=== PATIENT | female | born 1940 | race Caucasian/White ===

== ENCOUNTER 2017-01-19 15:38 | Inpatient (IN) | payer MEDICARE ==
[2017-01-19] MEDS ORDERED: Promethazine HCl 25 MG/ML VIAL ONE ×2 (16:35→19:22)
[2017-01-19 16:42] LABS: #Basophils 0.1 thou/uL (0.0-0.2); #Lymphocytes 1.5 thou/uL (1.20-3.40); #Monocytes 0.4 thou/uL (0.11-0.59); #Neutrophils 7.8 thou/uL (1.40-6.50); %Eosinophils 0.3 % (0.0-10.0); %Lymphocytes 15.7 % (21.0-51.0); %Monocytes 4.2 % (0.0-10.0); Hematocrit 45.4 % (36.0-47.0); Mean Platelet Volume 6.6 fL (7.4-10.4); Red Blood Cell (RBC) Count 4.67 mill/uL (4.20-5.40); White Blood Cell (WBC) Count 9.8 thou/uL (4.8-10.8)
[2017-01-19 17:00] LABS: ALT (SGPT) 12 U/L (8-55); AST (SGOT) 18 U/L (5-34); Alkaline Phosphatase 66 U/L (40-150); Anion Gap 19 mmol/L (10-20); BUN (Urea Nitrogen) 22 mg/dL (9.8-20.1); Bilirubin, Total 0.5 mg/dL (0.2-1.2); Calc. Creatinine Clearance 0 mL/min (70-130); Calcium 9.6 mg/dL (7.8-10.44); Carbon Dioxide 22 mmol/L (23-31); Chloride 100 mmol/L (98-107); Estimated GFR-MDRD 77; Globulin 3.4 g/dL (2.4-3.5); Lipase 10 U/L (8-78)
[2017-01-19 17:42] LABS: Bilirubin Negative (Negative); Blood, Urine Negative (Negative); Glucose, Urine (Dipstick) 100 mg/dL (Negative); Ketone, Urine Trace mg/dL (Negative); Nitrite Negative (Negative); Protein, Urine (Dipstick) 30 mg/dL (Neg-Trace); Urobilinogen 0.2 mg/dL (0.2-1.0)
[2017-01-19 17:44] LABS: Bacteria/HPF None Seen HPF (None Seen); Hyaline Casts/LPF 0-3 HYALINE CAST LPF (0-3 Hyaline); Squamous Epithelial None Seen HPF (0-3); WBC/HPF None Seen HPF (0-3)
--- NOTE | 2017-01-19 19:02 | CT ---
NONCONTRAST HEAD CT: Date: 01/19/17 HISTORY: Dizziness. COMPARISON: None. TECHNIQUE: Noncontrast head CT is performed from skull base to skull vertex. FINDINGS: No parenchymal hemorrhage. No extra-axial hematoma. No midline shift. Basilar cisterns are patent. Br ain volume, age-appropriate. Note, there is slight asymmetric atrophy of the frontal lobes. Cortical stacy-white matter differentiation is preserved. Ventricles and sulci are patent and symmetric. Calvar ium is intact. Prominent extra-axial space along the left and right frontal convexity secondary to asymmetric atroph y of the frontal lobe. Remote lacunar infarcts in both caudate nuclei. Indeterminate infarcts in the anterior limb of left i nternal capsule. Calvarium is intact. Adequate aeration of the sinuses and mastoid air cells. IMPRESSION: 1. Indeterminate lacunar infarcts in the anterior limb of left internal capsule. 2. Remote lacunar infarcts in both caudate nuclei. 3. Asymmetric atrophy of the left and right frontal lobe. There is associated prominent extra-axial CSF space secondary to atrophy. Correlate for Pick's disease. 4. Further evaluation with brain MRI may be beneficial. POS: PPP
[2017-01-19] MEDS ORDERED: Lorazepam 2 MG/ML VIAL ONE (19:22)
[2017-01-19] MEDS ORDERED: niCARdipine 20MG In NaCl 20 MG/200 ML BAG ONE (19:22)
--- NOTE | 2017-01-19 21:35 | PDOC.EVN ---
Event Note - Event Note Event Note: [id number] H&P Dictated 1. headache 2. HTN uregency 3. H/O HPL 4. R/O CVA PLAN: SEE ORDERS
[2017-01-20] MEDS: Ondansetron HCl/PF 4 MG/2 ML Vial IVP PRN ×4 (00:43→15:00)
[2017-01-20] MEDS: Sodium Chloride 0.9% 1,000 ML IV SCH ×2 (00:44→17:30)
[2017-01-20 00:45] VITALS: BMI 25.5
[2017-01-20 04:28] LABS: Anion Gap 12 mmol/L (10-20); BUN (Urea Nitrogen) 16 mg/dL (9.8-20.1); Calc. Creatinine Clearance 73 mL/min (70-130); Calcium 8.3 mg/dL (7.8-10.44); Carbon Dioxide 26 mmol/L (23-31); Chloride 102 mmol/L (98-107); Cholesterol 205 mg/dl (< 200 Desired); Estimated GFR-MDRD 85; LDL Cholesterol, Calculated 92 mg/dL
[2017-01-20 04:45] LABS: #Monocytes 0.4 thou/uL (0.11-0.59); #Neutrophils 5.9 thou/uL (1.40-6.50); %Basophils 0.3 % (0.0-1.0); %Eosinophils 0.3 % (0.0-10.0); %Lymphocytes 13.3 % (21.0-51.0); %Monocytes 5.4 % (0.0-10.0); Hematocrit 40.7 % (36.0-47.0); White Blood Cell (WBC) Count 7.3 thou/uL (4.8-10.8)
--- NOTE | 2017-01-20 06:17 | HP ---
DATE OF ADMISSION: 01/19/2017 CHIEF COMPLAINT: Headache, dizziness. HISTORY OF PRESENT ILLNESS: Patient is a 76-year-old female with past medical history of hypertensio n, hyperlipidemia, and was brought to the ER because of headache and dizziness. Patient was doing fi ne and all of a sudden around noon, the patient when she tried to get up from the couch, she started feeling dizzy as if she is going to fall, unsteady gait associated with some nausea and vomiting. So patient was brought to the ER. Upon ER arrival, patient complains of headache. Headache is dull ki nd and mild in intensity and hurting all over the head . Denies any fever, denies any chills. Patient was given Ativan in the ER because of dizziness. Denies any chest pain, denies any palpation s. Denies any cough, denies sputum production. PAST MEDICAL HISTORY: Denies smoking, occasional alcohol, denies any drugs. FAMILY HISTORY: Positive for heart problems. MEDICATIONS: List Reviewed. ALLERGIES: Reviewed. SOCIAL HISTORY: Denies smoking or drugs. Occasional alcohol use. PAST SURGICAL HISTORY: Cholecystectomy and hysterectomy. REVIEW OF SYSTEMS: Constitutional: Denies any fever, denies any chills. Eyes: Denies any vision p roblems. Ears: Denies any hearing loss. Neck: Denies any neck pain. Cardiovascular System: [place] es any chest pain. Respiratory System: Denies any cough, denies sputum production. Gastrointestina l: Positive for nausea, vomiting. Cranial nerve system: Positive for dizziness. Positive for head aches. Psychiatric: Denies anxiety. Integument: Denies any rash. Musculoskeletal: Denies any judd int deformities. All other review of systems are reviewed and are negative. PHYSICAL EXAMINATION: CONSTITUTIONAL/VITAL SIGNS: At the time of H&P performed, blood pressure is 162/68, pulse ox 94%, he art rate 60. GENERAL: The patient appears comfortable. HEENT: Pupils are equal, round, and reactive. Anterior nares patent. Nose normal. Ears normal. T eeth intact. Tongue is moist. NECK: Supple, no JVD. CARDIOVASCULAR: S1, S2 present. Regular rate and rhythm. No murmurs, no rubs, no gallops. RESPIRATORY: No wheezing, no rhonchi. Breath sounds bilaterally. GASTROINTESTINAL: Abdomen is soft, nontender, no guarding, no organomegaly, no masses felt. MUSCULOSKELETAL: No edema. INTEGUMENT: No rashes seen. PSYCHIATRIC: Mood appropriate at this time. LABORATORY DATA: At the time of H&P performed white count 9.8, hemoglobin 14.5, platelet count is 25 7,000. BMP showed sodium 137, potassium 3.5, chloride 100, CO2 is 22, BUN 22, creatinine 0.73. AST 18, ALT 12. IMAGING: CT brain, positive for indeterminate lacunar infarcts in the anterior limb of left internal capsule, remote lacunar infarcts in both caudate nuclei, asymmetric atrophy of the left and right fr ontal lobe. ASSESSMENT AND PLAN: Patient is a 76-year-old female: 1. Rule out stroke. Plan to consult Neurology to evaluate the patient. Plan to check MRI brain. P lev to do carotid ultrasound. Plan to check to do echo. We will follow the patient closely. 2. Hypertension urgency. Plan to monitor blood pressure closely. Plan to start on Cardene drip. W e will to titrate her blood pressure to around 160s and we will monitor blood pressure. We will foll ow the patient closely. 3. Nausea and vomiting, p.r.n. antiemetics. 4. Hyperlipidemia. Continue statin. Case was discussed in detail with the patient and patient's cousin also at the bedside.
--- NOTE | 2017-01-20 08:00 | CON ---
DATE OF CONSULTATION: 01/20/2017 REASON FOR CONSULTATION: ICU management of hypertensive emergency. HISTORY OF PRESENT ILLNESS: The patient is a 76-year-old female who came to the emergency room last night with some headache and dizziness, but mainly leg pain. She had a CT of the brain that showed s ome indeterminate age lacunar infarcts. The patient says she does have a history of a stroke affecti ng 1 of her eyes in the past. She currently is not having any headache, but continued to have some l eg pain. She was placed on a Cardene drip last night which is currently running at 1 mg per hour. PAST MEDICAL HISTORY: 1. Hypertension. 2. Hyperlipidemia. 3. Leg cramps. 4. Rheumatoid arthritis. PAST SURGICAL HISTORY: 1. Cholecystectomy. 2. Hysterectomy. MEDICATIONS: Excedrin Migraine 1 tablet daily as needed, Butrans transdermal patch 10 mcg per hour a pplied weekly, Celebrex 100 mg b.i.d., Bentyl 20 mg 4 times daily, [place] 10/325 one every 6 hours as needed for pain, lisinopril 10 mg twice daily, melatonin 1 mg nightly, One a Day Women's vitamin once daily, Crestor 20 mg daily, loratadine 10 mg daily, Imitrex 100 mg as needed. SOCIAL HISTORY: Does not smoke. Very occasionally consumes alcohol, does not use illicit substances . REVIEW OF SYSTEMS: Denies fever, chills, nausea, vomiting, chest pain, hematemesis, melena, hematoch ezia, hematuria, or dysuria. PHYSICAL EXAMINATION: VITAL SIGNS: Temperature 98.4, pulse 65, blood pressure 156/57. Intake 296, output 350. GENERAL: She is awake and alert, in no distress. NEUROLOGIC: She has no focal weakness. Sensation is fully intact throughout. Motor strength is 5/5 throughout. Cranial nerves II-XII are intact. HEENT: Unremarkable. NECK: No JVD, no bruits. LUNGS: Clear to auscultation anteriorly. CARDIOVASCULAR: S1 and S2 regular with a 2/6 systolic ejection murmur. ABDOMEN: Soft, nontender, no hepatosplenomegaly. EXTREMITIES: No clubbing, cyanosis or edema. SKIN: No obvious lesions. LABORATORY DATA: Sodium 136, potassium 3.7, chloride 102, CO2 26, BUN 16, creatinine 0.6, glucose 10 6. White blood cell count 7.3, hematocrit 40.7, platelet count 239. ASSESSMENT: 1. Headache with some leg pain. No indication on exam that she has had a stroke. CT shows some ind eterminate age old lacunar infarcts. 2. Hypertensive urgency - this is not an emergent situation. PLAN: She can be transferred to the floor and restarted on her antihypertensives. Her Cardene will be stopped. Further workup for stroke will be done on the stroke unit.
[2017-01-20] MEDS: Aspirin 81 mg Enteric Coated Tablet PO SCH (08:33)
[2017-01-20] MEDS: Lisinopril 10 MG TAB PO SCH ×2 (08:33→21:25)
[2017-01-20] MEDS: Heparin 5,000 UNITS/ML VIAL SC SCH ×3 (08:33→21:25)
[2017-01-20] MEDS: CeleCOXIB 100 MG CAP PO SCH ×2 (09:05→21:24)
[2017-01-20] MEDS ORDERED: SUMAtriptan Succinate 50 MG TAB PO PRN (09:30)
[2017-01-20] MEDS ORDERED: Famotidine 20 MG TAB PO SCH (11:45)
[2017-01-20] MEDS: Dicyclomine 20 MG TAB PO SCH ×3 (14:59→21:24)
--- NOTE | 2017-01-20 15:21 | PDOC.PN ---
- Subjective Encounter Start Date: 01/20/17 Encounter Start Time: 15:19 Subjective: feels weak,nauseous,tired.no headache. -: no paresthesias,muscle weakness - Objective MAR Reviewed: Yes Vital Signs & Weight: Vital Signs (12 hours) Temp Pulse Pulse Pulse Pulse Pulse Resp 01/20/17 14:15 60 81 78 57 L 01/20/17 08:33 01/20/17 08:00 97.9 F 01/20/17 07:58 97.9 F 55 L 17 01/20/17 04:00 98.4 F BP BP BP BP BP Pulse Ox 01/20/17 14:15 172/76 H 149/96 H 158/85 H 184/82 H 01/20/17 08:33 156/61 H 01/20/17 08:00 01/20/17 07:58 98 01/20/17 04:00 Most Recent Monitor Data Heart Rate from ECG 56 NIBP 166/63 NIBP BP-Mean 85 Respiration from ECG 15 SpO2 100 I&O: 01/19/17 01/20/17 01/21/17 06:59 06:59 06:59 Intake Total 296 250 Output Total 350 0 Balance -54 250 Result Diagrams: 01/20/17 03:27 01/20/17 03:27 Additional Labs: Laboratory Tests 01/20/17 03:27 Cholesterol 205 H Phys Exam - Physical Examination Constitutional: NAD HEENT: PERRLA, moist MMs, sclera anicteric, oral pharynx no lesions Neck: no nodes, no JVD, supple, full ROM Respiratory: no wheezing, no rales, no rhonchi, clear to auscultation bilateral Cardiovascular: RRR, no significant murmur Gastrointestinal: soft, non-tender, no distention, positive bowel sounds Musculoskeletal: no edema, pulses present Neurological: non-focal, normal sensation, moves all 4 limbs Psychiatric: normal affect, A&O x 3 Skin: no rash Dx/Plan (1) HLD (hyperlipidemia) Code(s): E78.5 - HYPERLIPIDEMIA, UNSPECIFIED Status: Acute (2) HTN (hypertension) Code(s): I10 - ESSENTIAL (PRIMARY) HYPERTENSION Status: Acute (3) Hypertensive urgency Code(s): I16.0 - HYPERTENSIVE URGENCY Status: Resolved - Plan plan discussed w/ family, DVT proph w/SCDs BP WNL.out of CCU.cont home meds.adjust as needed.may add diuretic -: CT shows old lacunar infarct.MRI ,echo,neurology consult pending -: cont ASA. -: check EKG for some atrial tachycardia on monitor.hemodynamically stable -: MRI machine broken.will try tomorrow * . Review of Systems - Review of Systems Constitutional: Weakness, Malaise. negative: Fever, Chills, Sweats, Other Respiratory: negative: Cough, Dry, Shortness of Breath, Hemoptysis, SOB with Excertion, Pleuritic Pain, Sputum, Wheezing Cardiovascular: negative: Chest Pain, Palpitations, Orthopnea, Paroxysmal Noc. Dyspnea, Edema, Light Headedness, Other Gastrointestinal: Nausea. negative: Vomiting, Abdominal Pain, Diarrhea, Constipation, Melena, Hematochezia, Other Genitourinary: negative: Dysuria, Frequency, Incontinence, Hematuria, Retention , Other Musculoskeletal: negative: Neck Pain, Shoulder Pain, Arm Pain, Back Pain, Hand Pain, Leg Pain, Foot Pain, Other Neurological: negative: Weakness, Numbness, Incoordination, Change in Speech, Confusion, Seizures, Other - Medications/Allergies Allergies/Adverse Reactions: Allergies Allergy/AdvReac Type Severity Reaction Status Date / Time Penicillins Allergy Verified 03/15/16 20:23 Medications: Current Medications Acetaminophen (Tylenol) 650 mg PO Q4H PRN PRN Reason: Headache/Fever or Pain Aspirin (Ecotrin) 81 mg PO DAILY [facility] Last Admin: 01/20/17 08:33 Dose: 81 mg Celecoxib (Celebrex) 100 mg PO BID [facility] Last Admin: 01/20/17 09:05 Dose: 100 mg Dicyclomine HCl (Bentyl) 20 mg PO QID [facility] Last Admin: 01/20/17 14:59 Dose: 20 mg Famotidine (Pepcid) 20 mg PO BID [facility] Heparin Sodium (Porcine) (Heparin) 5,000 units SC TID [facility] Last Admin: 01/20/17 14:59 Dose: 5,000 units Sodium Chloride (Normal Saline 0.9%) 1,000 mls @ 50 mls/hr IV .Q20H [facility] Last Admin: 01/20/17 00:44 Dose: 1,000 mls Lisinopril (Zestril) 10 mg PO BID [facility] Last Admin: 01/20/17 08:33 Dose: 10 mg Melatonin (Melatonin) 1 mg PO HS [place] Ondansetron HCl (Zofran) 4 mg IVP Q6H PRN PRN Reason: Nausea/Vomiting Last Admin: 01/20/17 15:00 Dose: 4 mg Rosuvastatin Calcium (Crestor) 20 mg PO HS [place] Sumatriptan Succinate (Imitrex) 100 mg PO DAILY PRN PRN Reason: Migraine Headache
[2017-01-20] MEDS ORDERED: Hydrochlorothiazide 25 MG TAB PO SCH (15:30)
[2017-01-20] MEDS ORDERED: MELATONIN 1 MG PO SCH (21:00)
[2017-01-20] MEDS: Famotidine 20 MG TAB PO SCH (21:25)
[2017-01-20] MEDS: Melatonin 3 MG TAB PO SCH (21:25)
--- NOTE | 2017-01-21 | CON ---
DATE OF CONSULTATION: 01/20/2017 REFERRING PROVIDER: Dr. Arnold Terrazas. REASON FOR CONSULTATION: Dizziness, vertigo and headache. HISTORY OF PRESENT ILLNESS: Ms. Lowery is a pleasant 76-year-old female who has been cons ulted for evaluation of dizziness, vertigo and severe headache. Patient reports that around noon, rosalia hooper was traveling by a car and after she got out of the car, she noticed that she was walking wobbly. After she got back into the car, she drove back and she was walking with her son and at that time, he r son noticed that she was kept going off the sidewalk and was stumbling. She then developed severe vertigo-type sensation, dizziness, nausea and vomiting. She had vomited several times over the next 2-3 hours. She also had noted poor coordination with both of her hands. This prompted her to presen t to the [facility] for further evaluation. She states that she developed a headache during that time period, which was located holocranially and was dull in quality and mild in intensit y. She states that she has history of migraine headaches, which are usually unilateral retroorbital region, throbbing and very sharp and severe in intensity. She felt that these headaches were atypica l and that they were milder in intensity and located all over instead of localized to one area. She does have a history of migraines that tends to occur one time per month. PAST MEDICAL HISTORY: Significant for hypertension and history of stroke. PAST SURGICAL HISTORY: Significant for cholecystectomy and hysterectomy. FAMILY HISTORY: Significant for heart problems. SOCIAL HISTORY: She denies smoking, alcohol use or illicit drug use. CURRENT MEDICATIONS: Please review MAR. ALLERGIES: Include PENICILLIN. REVIEW OF SYSTEMS: As mentioned in the HPI, otherwise negative. PHYSICAL EXAMINATION: VITAL SIGNS: Blood pressure of 144/70, pulse of 61, temperature of 90.9, respirations of 19 and O2 s ats of 95% on room air. GENERAL: A well-developed, well-nourished female in no apparent distress. RESPIRATORY: Clear to auscultation bilaterally. CARDIOVASCULAR: Regular rate and rhythm. NEUROLOGIC: Mental status: The patient is awake, alert and oriented x3. Speech and language: Flue nt speech. Cranial nerves: Pupils are 3 mm and reactive. Visual emanuel are intact. Extraocular mu scles are intact. No nystagmus is noted. Face is symmetric. Tongue and uvula are midline. Motor e xam showed normal tone and bulk with a 5/5 strength in both upper and lower extremities. Sensory: S ensation is intact and symmetric. Deep tendon reflexes 2+ reflexes in both upper and lower extremiti es. Babinski: Plantar responses flexion bilaterally. Coordination: There is mild dysmetria noted on [id number] testing on the left side. Gait and Romberg are not tested. LABORATORY DATA: Reviewed, which included CBC, CMP, lipid profile and urinalysis, which is significa nt for glucose of 143, total cholesterol of 205, LDL of 92, HDL of 100 and triglycerides of 66 and ot herwise unremarkable. IMAGING STUDIES: CT head without contrast was reviewed, which showed no acute intracranial abnormali ty. Echocardiogram results were reviewed, which showed ejection fraction of 55% to 60% with mild to moderate mitral regurg and moderate aortic regurgitation, otherwise unremarkable. IMPRESSION AND PLAN: 1. Ataxia. 2. Dysmetria. 3. Likely cerebellar stroke. Ms. Lowery is a pleasant 69-year-old female who presented with the sudden onset of vertigo , dizziness, coordination and gait imbalance difficulty. Based on the description of the symptoms an d given the fact that she has dysmetria on [id number] on the left side, she likely had a smal l cerebellar stroke. I would recommend obtaining MRI brain without contrast for further evaluation. I will also recommend obtaining a CT angiogram of the neck to rule out vertebrobasilar insufficiency . I would recommend continuing PT and OT. I would recommend continuing patient on aspirin 81 mg mecca ly for secondary stroke prevention. If MRI is negative for acute stroke, the patient can be discharg ed to home with outpatient appointment in my clinic in 6-8 weeks. Thank you for your consultation.
[2017-01-21] MEDS ORDERED: BUPRENORPHINE 10 MCG TOP SCH (07:00)
[2017-01-21] MEDS: Acetaminophen 325 MG TAB PO PRN (08:59)
[2017-01-21] MEDS: Dicyclomine 20 MG TAB PO SCH ×4 (08:59→21:11)
[2017-01-21] MEDS ORDERED: Hydrochlorothiazide 25 MG TAB PO SCH (09:00)
[2017-01-21] MEDS ORDERED: BUPRENORPHINE 10 MCG PO SCH (09:00)
[2017-01-21] MEDS: CeleCOXIB 100 MG CAP PO SCH (09:00)
[2017-01-21] MEDS: Famotidine 20 MG TAB PO SCH ×2 (09:00→21:09)
[2017-01-21] MEDS: Lisinopril 10 MG TAB PO SCH ×2 (09:00→21:10)
[2017-01-21] MEDS: Aspirin 81 mg Enteric Coated Tablet PO SCH (09:01)
[2017-01-21] MEDS: Heparin 5,000 UNITS/ML VIAL SC SCH ×3 (09:01→21:09)
--- NOTE | 2017-01-21 09:13 | PDOC.PN ---
- Subjective Encounter Start Date: 01/21/17 Encounter Start Time: 07:00 -: old records requested/rev pt has no change in her symptoms, she denies chest pain, Patient seen and examined. No new complaints. No overnight events - Objective Resuscitation Status: Resuscitation Status FULL:Full Resuscitation MAR Reviewed: Yes Vital Signs & Weight: Vital Signs (12 hours) Temp Pulse Resp BP BP BP Pulse Ox 01/21/17 09:00 145/63 H 01/21/17 08:24 98.6 F 57 L 16 145/63 H 98 01/21/17 04:04 98.5 F 57 L 18 153/92 H 97 01/20/17 23:24 98.8 F 61 20 144/60 H 93 L 01/20/17 21:45 98.8 F 61 20 01/20/17 21:25 142/62 H Most Recent Monitor Data Heart Rate from ECG 56 NIBP 166/63 NIBP BP-Mean 85 Respiration from ECG 15 SpO2 100 I&O: 01/20/17 01/21/17 01/22/17 06:59 06:59 06:59 Intake Total 296 250 Output Total 350 0 Balance -54 250 Result Diagrams: 01/20/17 03:27 01/20/17 03:27 Radiology Reviewed by me: Yes (CT brain) EKG Reviewed by me: Yes (NSR) Phys Exam - Physical Examination Constitutional: NAD HEENT: PERRLA, moist MMs, sclera anicteric Neck: no JVD, supple Respiratory: no wheezing, no rales, no rhonchi Cardiovascular: RRR, no significant murmur, no rub Gastrointestinal: soft, non-tender, no distention, positive bowel sounds Musculoskeletal: no edema, pulses present incordianation noted Psychiatric: normal affect, A&O x 3 Skin: no rash, normal turgor Dx/Plan (1) Acute lacunar infarction Code(s): I63.9 - CEREBRAL INFARCTION, UNSPECIFIED Status: Acute (2) HLD (hyperlipidemia) Code(s): E78.5 - HYPERLIPIDEMIA, UNSPECIFIED Status: Acute (3) HTN (hypertension) Code(s): I10 - ESSENTIAL (PRIMARY) HYPERTENSION Status: Chronic (4) Moderate aortic regurgitation Code(s): I35.1 - NONRHEUMATIC AORTIC (VALVE) INSUFFICIENCY Status: Chronic (5) Hypertensive urgency Code(s): I16.0 - HYPERTENSIVE URGENCY Status: Resolved - Plan cont current plan of care, plan discussed w/ family, PT/OT * neurology recommendation noted * will get CT angio Neck * today plan for MRI * continue selected home medication. * medication reviewed as below * symptomatic treatment * stroke team * will monitor today and adjust BP meds * possible rehab placement tomorrow Review of Systems - Review of Systems ENT: negative: Ear Pain, Ear Discharge, Nose Pain, Nose Discharge, Nose Congestion, Mouth Pain, Mouth Swelling, Throat Pain, Throat Swelling, Other Respiratory: negative: Cough, Dry, Shortness of Breath, Hemoptysis, SOB with Excertion, Pleuritic Pain, Sputum, Wheezing Cardiovascular: negative: Chest Pain, Palpitations, Orthopnea, Paroxysmal Noc. Dyspnea, Edema, Light Headedness, Other Gastrointestinal: negative: Nausea, Vomiting, Abdominal Pain, Diarrhea, Constipation, Melena, Hematochezia, Other Genitourinary: negative: Dysuria, Frequency, Incontinence, Hematuria, Retention , Other Musculoskeletal: negative: Neck Pain, Shoulder Pain, Arm Pain, Back Pain, Hand Pain, Leg Pain, Foot Pain, Other Skin: negative: Rash, Lesions, [place], Bruising, Other Neurological: Incoordination. negative: Weakness, Numbness, Change in Speech, Confusion, Seizures, Other - Medications/Allergies Allergies/Adverse Reactions: Allergies Allergy/AdvReac Type Severity Reaction Status Date / Time Penicillins Allergy Verified 03/15/16 20:23 Medications: Current Medications Acetaminophen (Tylenol) 650 mg PO Q4H PRN PRN Reason: Headache/Fever or Pain Last Admin: 01/21/17 08:59 Dose: 650 mg Aspirin (Ecotrin) 81 mg PO DAILY [facility] Last Admin: 01/21/17 09:01 Dose: 81 mg Celecoxib (Celebrex) 100 mg PO DAILY [facility] Last Admin: 01/21/17 09:00 Dose: 100 mg Dicyclomine HCl (Bentyl) 20 mg PO QID [facility] Last Admin: 01/21/17 08:59 Dose: 20 mg Famotidine (Pepcid) 20 mg PO BID [facility] Last Admin: 01/21/17 09:00 Dose: 20 mg Heparin Sodium (Porcine) (Heparin) 5,000 units SC TID [facility] Last Admin: 01/21/17 09:01 Dose: 5,000 units Lisinopril (Zestril) 10 mg PO BID [facility] Last Admin: 01/21/17 09:00 Dose: 10 mg Loratadine (Claritin) 10 mg PO HS [facility] Melatonin (Melatonin) 1 mg PO HS [facility] Last Admin: 01/20/17 21:25 Dose: 1 mg Ondansetron HCl (Zofran) 4 mg IVP Q6H PRN PRN Reason: Nausea/Vomiting Last Admin: 01/20/17 15:00 Dose: 4 mg Buprenorphine [ (Butrans] 10 Mcg) 0 each TOP Q7D [facility] Progesterone (Prometrium) 100 mg PO HS [facility] Rosuvastatin Calcium (Crestor) 20 mg PO DAILY [facility] Last Admin: 01/21/17 09:01 Dose: 20 mg Sodium Chloride (Flush - Normal Saline) 10 ml IVF Q12HR [facility] Last Admin: 01/21/17 09:01 Dose: Not Given Sodium Chloride (Flush - Normal Saline) 10 ml IVF PRN PRN PRN Reason: Saline Flush Sumatriptan Succinate (Imitrex) 100 mg PO DAILY PRN PRN Reason: Migraine Headache Thyroid ([place] Thyroid) 120 mg PO HS [facility]
--- NOTE | 2017-01-21 10:24 | CT ---
CT ANGIO NECK WITH CONTRAST: Date: 01/21/17 Multiple axial tomograms obtained through the neck in arterial phase with multiplanar reconstruction and 3D postprocessing. HISTORY: CVA. FINDINGS: No evidence of stenosis at the origin of the arch vessels. The common carotid arteries are unremarkable throughout their course with no focal stenosis or signif icant atherosclerotic disease. At the right carotid bifurcation and proximal ICA, there is significant atherosclerotic change. There is soft plaque and calcified plaque which does produce stenosis in the proximal right ICA at its [place] gin. The degree of stenosis is best evaluated on the sagittal images and is consistent with approxima tely 60% diameter stenosis according to NASCET criteria. The right ICA above the bulb is somewhat tor tuous and there is a kink in the mid ICA above the bulb. The right ICA is otherwise unremarkable. There is mild atherosclerotic disease at the left carotid bifurcation and proximal left ICA; however, no significant stenosis is seen in the left ICA. Vertebral arteries are patent. Images through the lung apices show nonspecific ground-glass opacity in both lung apices. There are a lso tiny nodular densities seen bilaterally which measure in the 3-4 mm range. Consider dedicated [facility] st CT. No evidence of mass or adenopathy in the neck. IMPRESSION: Prominent atherosclerotic disease in the right bulb and proximal ICA with both soft and calcified yue que present. This does produce moderate stenosis in the proximal right ICA estimated at approximately 60% as described above. POS: BRIAN
[2017-01-21] MEDS ORDERED: Iopamidol 370 76% 100 ML VIAL ONE (15:51)
--- NOTE | 2017-01-21 19:38 | MRI ---
MRI BRAIN WITHOUT CONTRAST: History: Cerebral vascular accident. Comparison: CT brain 01-19-17. FINDINGS: At the tomentum of the pete on the left is a punctate area of diffusion restriction which is confirme d on the ACD map. This is near the cerebellar peduncle. No other areas of diffusion restriction. No abnormal areas of hemorrhage. There is mild atrophy of the bifrontal lobes. No hydrocephalus. No midline shift or mass effect. Flow voids of the [place] are maintained. Normal marrow signal of the clavus. Cerebellar tonsils terminate above the level of the foramen magnu m. IMPRESSION: 1. Punctate acute infarction of the left pontine tegmentum near the inferior cerebellar peduncle with out hemorrhage. 2. Bilateral frontal lobe atrophy. 3. Mild microvascular ischemic changes. POS: BRIAN
--- NOTE | 2017-01-21 20:36 | PRG ---
DATE OF SERVICE: 01/21/2017 SUBJECTIVE: Ms. Lowery is a pleasant 76-year-old female who presented with vertigo, dizzi ness, and ataxia. She reports of improvement in her symptoms and today, her balance is much better. She denies any headache, chest pain, palpitation, nausea, vomiting, or abdominal pain. PHYSICAL EXAMINATION: VITAL SIGNS: Blood pressure 138/77, pulse of 62, temperature of 98.5, respirations of 18, O2 sats of 96% on room air. GENERAL: Well-developed, well-nourished female, in no apparent distress. RESPIRATORY: Clear to auscultation bilaterally. CARDIOVASCULAR: Regular rate and rhythm. NEUROLOGICAL: Mental status: The patient is awake, alert, oriented x3. Speech and language: Fluen t speech. Cranial nerves: Pupils are 3 mm and reactive. Visual emanuel are intact. External muscle s are intact. No nystagmus. Face is symmetric. Motor exam showed normal tone and bulk with 5/5 str ength in the upper and lower extremities. Coordination improved to [id number] on today when compared to yesterday. IMAGING STUDIES: MRI brain without contrast was reviewed, which showed small punctate acute infarcti on involving the left pontine tegmentum near the inferior cerebellar peduncle. A CT angiogram of the neck was reviewed, which showed 60% stenosis of the proximal right ICA with a calcified and soft yue que and right carotid bulb and proximal ICA. IMPRESSION: 1. Acute right pontine tegmentum ischemic infarct. 2. Right internal carotid artery stenosis. PLAN: Ms. Lowery is a pleasant 76-year-old female who presented with the acute onset of d izziness and vertigo. She did have an MRI brain done, which did show an acute right pontine tegmentu m ischemic infarct. Her symptoms are now resolved. At this time, I would recommend continuing her o n aspirin 325 mg daily for secondary stroke prevention. She will also continue on rosuvastatin 20 mg daily. I have advised her on secondary stroke prevention including controlling her diet and exercis e on a daily basis, controlling her blood pressure and cholesterol. I have also advised her that she needs to be followed up with cardiovascular surgeon as she does have a 60% stenosis of the right ICA . This is to be closely monitored for future. She is okay to be discharged to home from neurologica l standpoint.
[2017-01-21] MEDS ORDERED: PROGESTERONE MICRONIZED 100 MG PO SCH (21:00)
[2017-01-21] MEDS ORDERED: Non-Formulary Item 1 EACH (Loratadine [Loratadine] 10 MG) PO SCH (21:00)
[2017-01-21] MEDS: Loratadine 10 MG TAB PO SCH (21:09)
[2017-01-21] MEDS: Progesterone,Micronized 100 MG CAP PO SCH (21:09)
[2017-01-21] MEDS: Melatonin 3 MG TAB PO SCH (21:10)
[2017-01-22] MEDS: Heparin 5,000 UNITS/ML VIAL SC SCH (08:51)
[2017-01-22] MEDS: Dicyclomine 20 MG TAB PO SCH ×4 (08:52→20:11)
[2017-01-22] MEDS: Famotidine 20 MG TAB PO SCH ×2 (08:52→20:08)
[2017-01-22] MEDS: Aspirin 325 mg Enteric Coated Tablet PO SCH (08:52)
[2017-01-22] MEDS: CeleCOXIB 100 MG CAP PO SCH (08:52)
[2017-01-22] MEDS: Lisinopril 10 MG TAB PO SCH ×2 (08:53→20:10)
[2017-01-22] MEDS: Acetaminophen 325 MG TAB PO PRN ×4 (12:25→23:11)
[2017-01-22 13:44] LABS: Troponin I Less than 0.010 ng/mL (< 0.028)
[2017-01-22] MEDS ORDERED: Ketorolac Tromethamine 30 MG/ML VIAL IVP SCH (14:15)
[2017-01-22 16:31] LABS: Troponin I 0.015 ng/mL (< 0.028)
[2017-01-22] MEDS ORDERED: hydrALAZINE 20 MG/ML VIAL SLOW IVP PRN (17:54)
--- NOTE | 2017-01-22 18:01 | PDOC.PN ---
- Subjective Encounter Start Date: 01/22/17 Encounter Start Time: 13:00 Patient seen and examined. Intermittent sharp CP - no changes on tele. No overnight events. No new focal findings. - Objective Resuscitation Status: Resuscitation Status FULL:Full Resuscitation MAR Reviewed: Yes Vital Signs & Weight: Vital Signs (12 hours) Temp Pulse Resp BP BP Pulse Ox 01/22/17 15:32 98.7 F 63 18 152/63 H 97 01/22/17 11:20 98.8 F 56 L 16 156/73 H 98 01/22/17 08:53 146/56 H 01/22/17 08:00 97.9 F 64 18 01/22/17 07:54 97.9 F 64 18 160/84 H 97 Weight Weight 151 lb 12.8 oz Most Recent Monitor Data Heart Rate from ECG 56 NIBP 166/63 NIBP BP-Mean 85 Respiration from ECG 15 SpO2 100 I&O: 01/21/17 01/22/17 01/23/17 06:59 06:59 06:59 Intake Total 250 1612 Output Total 0 Balance 250 1612 Result Diagrams: 01/20/17 03:27 01/20/17 03:27 EKG Reviewed by me: Yes (Tele SR) Phys Exam - Physical Examination Constitutional: NAD Respiratory: no wheezing, no rales, no rhonchi Cardiovascular: RRR, no rub Gastrointestinal: soft, non-tender, positive bowel sounds Musculoskeletal: no edema Neurological: non-focal, normal sensation, moves all 4 limbs Psychiatric: normal affect, A&O x 3 Dx/Plan - Plan cont current plan of care, DVT proph w/heparin, DVT proph w/SCDs IMPRESSION: 1. Acute CVA 2. HTN Crisis requiring Cardene drip 3. Chest pain 4. Rt internal Carotid artery stenosis 60% 5. PCN allergy 6. h/o Migraines 7. CKD 2 PLAN: * Serial CE due to CP * DC Sumatriptan due to Acute CVA * Cont ASA 325 * Con Lisinopril 10 mg BID * Cont to monitor * DC Planning Review of Systems - Review of Systems Constitutional: negative: Fever, Chills, Sweats, Weakness, Malaise Respiratory: negative: Cough, Dry, Shortness of Breath, Hemoptysis, SOB with Excertion, Pleuritic Pain, Sputum, Wheezing Cardiovascular: Chest Pain. negative: Palpitations, Orthopnea, Paroxysmal Noc. Dyspnea, Edema, Light Headedness Neurological: Other. negative: Weakness, Numbness, Incoordination, Change in Speech, Confusion, Seizures - Medications/Allergies Allergies/Adverse Reactions: Allergies Allergy/AdvReac Type Severity Reaction Status Date / Time Penicillins Allergy Verified 03/15/16 20:23 Medications: Current Medications Acetaminophen (Tylenol) 650 mg PO Q4H PRN PRN Reason: Headache/Fever or Pain Last Admin: 01/22/17 16:20 Dose: 650 mg Aspirin (Ecotrin) 325 mg PO DAILY [facility] Last Admin: 01/22/17 08:52 Dose: 325 mg Dicyclomine HCl (Bentyl) 20 mg PO QID [facility] Last Admin: 01/22/17 16:20 Dose: 20 mg Famotidine (Pepcid) 20 mg PO BID [facility] Last Admin: 01/22/17 08:52 Dose: 20 mg Hydralazine HCl (Apresoline) 10 mg SLOW IVP Q4H PRN PRN Reason: SBP Greater Than 180 Lisinopril (Zestril) 10 mg PO BID [facility] Last Admin: 01/22/17 08:53 Dose: 10 mg Loratadine (Claritin) 10 mg PO HS [facility] Last Admin: 01/21/17 21:09 Dose: 10 mg Melatonin (Melatonin) 1 mg PO HS [facility] Last Admin: 01/21/17 21:10 Dose: 1 mg Ondansetron HCl (Zofran) 4 mg IVP Q6H PRN PRN Reason: Nausea/Vomiting Last Admin: 01/20/17 15:00 Dose: 4 mg Progesterone (Prometrium) 100 mg PO HS [facility] Last Admin: 01/21/17 21:09 Dose: 100 mg Rosuvastatin Calcium (Crestor) 20 mg PO DAILY [facility] Last Admin: 01/22/17 08:52 Dose: 20 mg Sodium Chloride (Flush - Normal Saline) 10 ml IVF Q12HR [facility] Last Admin: 01/22/17 08:53 Dose: 10 ml Sodium Chloride (Flush - Normal Saline) 10 ml IVF PRN PRN PRN Reason: Saline Flush Thyroid ([place] Thyroid) 120 mg PO HS [facility] Last Admin: 01/21/17 21:09 Dose: 120 mg
[2017-01-22] MEDS: Progesterone,Micronized 100 MG CAP PO SCH (20:07)
[2017-01-22] MEDS: Loratadine 10 MG TAB PO SCH (20:08)
[2017-01-22] MEDS: Melatonin 3 MG TAB PO SCH (20:09)
[2017-01-23 08:03] VITALS: BP 157/74; TEMP 98.1
[2017-01-23] MEDS: Aspirin 325 mg Enteric Coated Tablet PO SCH (08:42)
[2017-01-23] MEDS: Dicyclomine 20 MG TAB PO SCH (08:42)
[2017-01-23] MEDS: Famotidine 20 MG TAB PO SCH (08:42)
[2017-01-23] MEDS: Lisinopril 10 MG TAB PO SCH (08:42)
[2017-01-23] MEDS: Acetaminophen 325 MG TAB PO PRN (09:29)
--- NOTE | 2017-01-23 22:12 | DIS ---
DATE OF ADMISSION: 01/19/2017 DATE OF DISCHARGE: 01/23/2017 PRIMARY CARE PHYSICIAN: Dr. Cookie Kelley. DISCHARGE DISPOSITION: Home. DISCHARGE DIAGNOSES: 1. Acute infarction in the right pontine region near the cerebellar peduncle. 2. Right internal carotid artery stenosis. 3. Hypertensive urgency, resolved. 4. Chest pain, resolved. 5. Migraines. 6. Chronic kidney disease stage 2. 7. Hypothyroidism. DISCHARGE MEDICATIONS: [place] thyroid 120 mg at bedtime, Butrans 10 mcg every 7 day patch, progester one micronized 100 mg daily, Crestor 20 mg daily, melatonin 1 mg daily at bedtime, Bentyl as needed q .i.d., lisinopril 10 mg p.o. b.i.d., clonidine 0.1 mg b.i.d. p.r.n. and aspirin 325 mg p.o. daily. CONSULTATIONS: Inhouse include Neurology, Dr. Kanika Roach. PROCEDURES DONE IN THE HOSPITAL: Include; 1. Transthoracic echocardiogram, which shows normal ejection fraction of 55-60%, normal right ventri cular size and function. She does have moderate aortic regurgitation and otherwise no chronic cardia c changes. 2. CT scan of the brain upon presentation, which showed indeterminate lacunar infarction in the ante rior limb of the left internal capsule and remote lacunar infarction in both caudate nuclei and an as ymmetric atrophy of the left and right frontal lobe. 3. CT angio of the brain which shows plaque in the proximal internal carotid artery with about 60% s tenosis. 4. MRI of the brain which confirmed the finding of punctate acute infarction in the left pontine teg mentum near the inferior cerebellar peduncle without hemorrhage in bilateral frontal lobe atrophy. HISTORY OF PRESENTING ILLNESS: Ms. Lowery is a 76-year-old female with past medical histo ry of hypertension, dyslipidemia, and hypothyroidism as well as migraines who was brought into the em ergency room with complaints of dizziness and problems with balance, along with nausea and vomiting a nd headache. Upon presentation, she underwent a CT scan of the brain, which was positive for indeter minate lacunar infarction. She was admitted to stroke floor for further evaluation and rule out stro ke. She was also found to have hypertensive urgency upon presentation and was initially admitted to the critical care unit on Cardene drip. HOSPITAL COURSE: The patient was taken off the Cardene drip rather quickly and was transferred back on the stroke floor. Stroke workup was initiated and she was seen by Neurology, Dr. Roach. Her MRI d id show acute infarction as stated above. Dr. Roach recommended continuation of aspirin and statin th at was started upon admission. At this time, her symptoms have improved and she is eager to go home. She is instructed to follow up with Neurology and primary care physician as an outpatient. Because of resolution of her symptoms, the patient is declining outpatient rehabilitation. I did off er her outpatient program rehabilitation, but at this time, the patient is not interested and withdraw the follow up with her primary care physician. The patient did have some accelerated junctional rhythm on the monitors and some on and off episodes of chest pain. Cardiac workup was initiated and her 12-lead EKG as well as her transthoracic echocar diogram were unremarkable. The patient was asymptomatic and it did not happen again. Serial cardiac enzymes were trended and they were normal. She is made aware of this finding and she will call her primary care physician if she ever has symptoms of palpitations, chest discomfort, dizziness or near syncope. She was seen and examined prior to discharge PHYSICAL EXAMINATION: VITAL SIGNS: Include temperature 98.1, pulse of 61, blood pressure 157/74. GENERAL: No acute distress, awake, alert, oriented x3. CHEST: Clear to auscultation without any wheezing, rales or rhonchi. Rate and rhythm is regular wit hout any murmur, rubs or gallops. NEUROLOGIC: Nonfocal. LABORATORY DATA: Troponin less than 0.010. Total cholesterol 205. Lipase 10. Serum chemistries an d CBC unremarkable. Urinalysis is trace glucose and ketones, otherwise unremarkable. At this time, she is eager to go home and is stable as well as cleared by Neurology for discharge. She will follow up as above. Total time spent 32 minutes. Discharge plan was discussed with the patient and family at bedside and they verbalized understanding.
== END 2017-01-23 11:48 | disposition home or self-care (01) | DRG 66 ==
LOC: ERS 15:38 → CCU 19:40 → 2SE 01-20 09:50
PROVIDERS: ADMIT Internal Medicine; ATTEND Internal Medicine
DX: I63.9 Cerebral infarction, unspecified (principal); M06.9 Rheumatoid arthritis, unspecified; I35.1 Nonrheumatic aortic (valve) insufficiency; I12.9 Hypertensive chronic kidney disease with stage 1 through stage 4 chronic kidney disease, or unspecified chronic kidney disease; I16.0 Hypertensive urgency; I65.21 Occlusion and stenosis of right carotid artery; R27.8 Other lack of coordination; R26.0 Ataxic gait; G43.909 Migraine, unspecified, not intractable, without status migrainosus; Z86.73 Personal history of transient ischemic attack (TIA), and cerebral infarction without residual deficits; N18.2 Chronic kidney disease, stage 2 (mild); E03.9 Hypothyroidism, unspecified; E78.5 Hyperlipidemia, unspecified; R11.2 Nausea with vomiting, unspecified
CPT/HCPCS: 36415; 70450; 70498; 70551; 80048; 80053; 80061; 81003; 81015; 83690; 84484; 85025; 93005; 93010; 93306; 96361; 96365; 96366; 96367; 96368; 96375; A4216; G8978-GP-CJ; G8979-GP-CH; G8987-GO-CJ; G8988-GO-CI; G8996-GN-CH; G8997-GN-CH; J0360; J1644; J1885; J2060; J2405; J2550

== ENCOUNTER 2017-11-30 11:06 | Emergency (ER) | payer MEDICARE ==
[2017-11-30 12:05] LABS: #Basophils 0.1 thou/uL (0.0-0.2); #Eosinphils 0.3 thou/uL (0.0-0.7); #Lymphocytes 0.7 thou/uL (1.20-3.40); #Monocytes 0.5 thou/uL (0.11-0.59); #Neutrophils 11.5 thou/uL (1.40-6.50); %Basophils 0.5 % (0.0-1.0); %Eosinophils 2.2 % (0.0-10.0); %Lymphocytes 5.7 % (21.0-51.0); %Monocytes 3.8 % (0.0-10.0); %Neutrophils 87.8 % (42.0-75.0); Hemoglobin 12.6 g/dL (12.0-16.0); Mean Corpuscular HGB CONC 32.2 g/dL (32.0-36.0); Mean Corpuscular Hemoglobin 30.7 pg (27.0-31.0); Mean Corpuscular Volume 95.2 fL (78.0-98.0); Mean Platelet Volume 6.9 fL (7.4-10.4); Platelet Count 288 thou/uL (130-400); RBC Distribution Width 12.5 % (11.5-14.5); Red Blood Cell (RBC) Count 4.09 mill/uL (4.20-5.40); White Blood Cell (WBC) Count 13.1 thou/uL (4.8-10.8)
[2017-11-30 12:31] LABS: Bilirubin Small (Negative); Blood, Urine Negative (Negative); Clarity CLEAR (Clear); Glucose, Urine (Dipstick) Negative (Negative); Leukocyte Small (Negative); Nitrite Negative (Negative); Protein, Urine (Dipstick) Trace mg/dL (Neg-Trace); Specific Gravity, Urine 1.019 (1.002-1.036); pH, Urine 7.5 (5.0-9.0)
[2017-11-30 12:32] LABS: Bacteria/HPF None Seen HPF (None Seen); Hyaline Casts/LPF 0-3 HYALINE CAST LPF (0-3 Hyaline); Pathc Cast-AUWi Flag 0.43 (0-2.49); WBC/HPF 0-3 HPF (0-3)
[2017-11-30 12:36] LABS: ALT (SGPT) 286 U/L (8-55); AST (SGOT) 455 U/L (5-34); Alkaline Phosphatase 165 U/L (40-150); Anion Gap 12 mmol/L (10-20); BUN (Urea Nitrogen) 13 mg/dL (9.8-20.1); Bilirubin, Total 0.7 mg/dL (0.2-1.2); Calc. Creatinine Clearance 0 mL/min (70-130); Calcium 9.2 mg/dL (7.8-10.44); Carbon Dioxide 25 mmol/L (23-31); Chloride 98 mmol/L (98-107); Estimated GFR-MDRD 73; Glucose 101 mg/dL (83-110); Lipase 66 U/L (8-78); Potassium 3.6 mmol/L (3.5-5.1); Sodium 131 mmol/L (136-145)
[2017-11-30 12:41] LABS: RBC/HPF 0-3 HPF (0-3)
== END 2017-11-30 14:02 | disposition home or self-care (01) ==
LOC: ERS 11:06
DX: N30.90 Cystitis, unspecified without hematuria (principal); R74.8 Abnormal levels of other serum enzymes; I10 Essential (primary) hypertension; M19.90 Unspecified osteoarthritis, unspecified site; G43.909 Migraine, unspecified, not intractable, without status migrainosus; Z79.899 Other long term (current) drug therapy
CPT/HCPCS: 36415; 80053; 81003; 81015; 83690; 85025; 93005

== ENCOUNTER 2022-09-11 10:51 | Emergency (ER) | payer MEDICARE ==
[2022-09-11] MEDS ORDERED: Bupivacaine 0.25% 10 ML VIAL ONE (12:10)
[2022-09-11] MEDS ORDERED: Boostrix 0.5 ML (Tdap) VIAL (>/=7 yrs of age) ONE (12:11)
[2022-09-11 12:48] LABS: #Basophils 0.1 thou/uL (0.0-0.2); #Eosinphils 0.1 thou/uL (0.0-0.7); #Monocytes 0.6 thou/uL (0.11-0.59); #Neutrophils 6.1 thou/uL (1.40-6.50); %Basophils 0.7 % (0.0-1.0); %Eosinophils 1.1 % (0.0-10.0); %Lymphocytes 18.6 % (21.0-51.0); %Monocytes 7.2 % (0.0-10.0); %Neutrophils 72.2 % (42.0-75.0); Hematocrit 42.2 % (36.0-47.0); Hemoglobin 13.6 g/dL (12.0-16.0); Mean Corpuscular HGB CONC 32.2 g/dL (32.0-36.0); Mean Corpuscular Hemoglobin 27.9 pg (27.0-31.0); Mean Corpuscular Volume 86.5 fl (78.0-98.0); Mean Platelet Volume 10.1 fL (7.4-10.4); Platelet Count 289 10x3/uL (130-400); RBC Distribution Width 15.7 % (11.5-14.5); Red Blood Cell (RBC) Count 4.88 mill/uL (4.20-5.40); White Blood Cell (WBC) Count 8.4 10x3/uL (4.8-10.8)
[2022-09-11 14:05] LABS: ALT (SGPT) 45 U/L (8-55); AST (SGOT) 84 U/L (5-34); Albumin 3.7 g/dL (3.4-4.8); Alkaline Phosphatase 68 U/L (40-110); Anion Gap 14 mmol/L (10-20); BUN (Urea Nitrogen) 20 mg/dL (9.8-20.1); Bilirubin, Total 0.5 mg/dL (0.2-1.2); Calc. Creatinine Clearance 0 mL/min (70-130); Calcium 9.4 mg/dL (7.8-10.44); Carbon Dioxide 24 mmol/L (23-31); Chloride 99 mmol/L (98-107); Estimated GFR 33; Globulin 3.1 g/dL (2.4-3.5); Glucose 98 mg/dL (83-110); Potassium 2.9 mmol/L (3.5-5.1); Protein, Total 6.8 g/dL (5.8-8.1); Sodium 134 mmol/L (136-145)
[2022-09-11 14:58] LABS: Bacteria/HPF 3+ HPF (None Seen); Bilirubin Negative (Negative); Blood, Urine Negative (Negative); CAUTI Indications for Culture Dysuria,urgency,freq; Clarity Turbid (Clear); Glucose, Urine (Dipstick) Normal (Negative); Ketone, Urine Negative (Negative); Leukocyte 25 Leu/uL (Negative); Nitrite Negative (Negative); Protein, Urine (Dipstick) 50 mg/dL (Neg-Trace); RBC/HPF 0-3 HPF (0-3); Specific Gravity, Urine 1.016 (1.002-1.036); Urobilinogen Normal mg/dL (Less than 2); pH, Urine 5.5 (5.0-9.0)
[2022-09-11 14:59] LABS: Urine Culture Reflex No No
== END 2022-09-11 17:05 | disposition home or self-care (01) ==
LOC: ERS 10:51
DX: S01.81XA Laceration without foreign body of other part of head, initial encounter (principal); S70.11XA Contusion of right thigh, initial encounter; I10 Essential (primary) hypertension; Z79.899 Other long term (current) drug therapy; Z79.01 Long term (current) use of anticoagulants; W19.XXXA Unspecified fall, initial encounter
CPT/HCPCS: 12002; 36415; 70450; 72125; 80053; 81001; 83605; 84484; 85025; 90471; 90715; 93005; S0020